=== PATIENT | female | born 1960 | race Caucasian/White ===

== ENCOUNTER → 2020-08-07 | Outpatient (CLI) | payer OTHER ==
[~2020-08-07] MED LIST: ASPI81TA45 PO; BLAC200C PO; CHOL10002 PO; FERR325T18 PO; LACT1CAP35 PO; LISI-170 PO; LISI1TAB23 PO; METO25TA35 PO; MULT-208 PO; MULT-257 PO; [UNRECOGNIZED DRUG - REMARK] PO
== END | disposition home or self-care (01) ==
LOC: RAD 11:26
PROVIDERS: ATTEND Surgery
DX: E21.0 Primary hyperparathyroidism (principal)
CPT/HCPCS: 78070; A9500

== ENCOUNTER 2020-10-09 17:13 | Observation (INO) | payer OTHER ==
[~2020-10-09] VITALS: Ht 190.5 cm; Wt 151.4 kg
[2020-10-09] MEDS ORDERED: ASPIRIN 81 MG TABLET CHEW ONE (17:53)
[2020-10-09] MEDS ORDERED: DILTIAZEM 5 MG/ML, 5ML ONE ×2 (17:54→19:28)
[2020-10-09] MEDS ORDERED: ASPIRIN 81 MG TABLET CHEW PO ONE (18:00)
[2020-10-09] MEDS ORDERED: DILTIAZEM 5 MG/ML, 5ML IVPush ONE ×2 (18:00→19:30)
[2020-10-09 18:09] LABS: BASOPHILS % (AUTO) 1 % (0-1); EOSINOPHILS % (AUTO) 0 % (1-7); LYMPHOCYTES % (AUTO) 21 % (22-44); MEAN CORPUSCULAR HEMOGLOBIN 29.6 pg (27.0-34.8); MEAN PLATELET VOLUME 7.7 fL (7.4-10.4); MONOCYTES % (AUTO) 8 % (2-9); NEUTROPHILS % (AUTO) 70 % (42-75); PLATELET COUNT 356 x10^3/uL (130-400); RED BLOOD COUNT 5.02 x10^6/uL (3.82-5.3)
[2020-10-09 18:11] LABS: MD NO
[2020-10-09 18:17] LABS: ALBUMIN 3.5 g/dL (3.4-5.0); ANION GAP 7 mmol/L (5-15); CALCIUM 10.6 mg/dL (8.5-10.1); CHLORIDE 99 mmol/L (98-107)
[2020-10-09 18:27] LABS: PROTHROMBIN TIME 10.7 Seconds (9.6-11.5)
[2020-10-09 18:30] LABS: CREATININE 0.88 mg/dL (0.55-1.02); FREE T4 (FREE THYROXINE) 1.25 ng/dL (0.76-1.46); TROPONIN I < 0.015 ng/mL (0.000-0.045)
--- NOTE | 2020-10-09 18:32 | NUR ---
PT IN BED WITH NO SIGNS OR SYMPTOMS OF ACUTE DSITRESS NOTED RESPIRAITONS EVEN AND UNLABORED DENIES NEED OR DISCOMFORT AT THIS TIME. 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 PT DENIES NEED OR DISCOMFORT AT THIS TIME. MD IN TO ASSESS, PT VERBALIZES UNDERSTANDING AND AGREEMENT WITH PLAN OF CARE.
--- NOTE | 2020-10-09 20:18 | NUR ---
BREAK RN: REPORT CALLED TO KRYSTLE DUVALL TO GO TO 528 WITH TAMMIE, ADMITING MD AT BS AT THIS TIME
[2020-10-09] MEDS ORDERED: GABAPENTIN 300 MG CAPSULE PO PRN (21:00)
[2020-10-09] MEDS ORDERED: ACETAMINOPHEN 325 MG TABLET PO PRN (21:00)
[2020-10-09] MEDS ORDERED: MELATONIN 5 MG TABLET PO PRN (21:00)
[2020-10-09] MEDS ORDERED: DILTIAZEM 5 MG/ML, 5ML IVPush PRN (21:00)
[2020-10-09] MEDS ORDERED: ONDANSETRON 2MG/ML, 2ML IVPush PRN (21:00)
[2020-10-09 21:24] VITALS: BP 145/88
[2020-10-09] MEDS ORDERED: LISI1TAB39 PO (21:42)
[2020-10-09] MEDS: APIXABAN 5 MG TABLET PO SCH (22:33)
[2020-10-09] MEDS: METOPROLOL TARTRATE 25 MG TAB PO SCH ×2 (22:33→23:38)
[2020-10-10 01:07] VITALS: BP 134/86
[2020-10-10 05:49] LABS: ANION GAP 7 mmol/L (5-15); CALCIUM 10.6 mg/dL (8.5-10.1); CHLORIDE 101 mmol/L (98-107); CHOLESTEROL, TOTAL 170 mg/dL (140-239); CREATININE 0.83 mg/dL (0.55-1.02); TRIGLYCERIDES 94 mg/dL (50-200); VLDL CHOLESTEROL 19 mg/dL (0-25)
[2020-10-10 05:51] LABS: HDL CHOLESTEROL (DIRECT) 72 mg/dL (40-60)
[2020-10-10 06:11] VITALS: BP 121/84
[2020-10-10] MEDS: METOPROLOL TARTRATE 25 MG TAB PO SCH (06:27)
[2020-10-10 06:31] LABS: CHOL/HDL RATIO 2.4; HDL CHOL % 42 % (28-40); LDL CHOLESTEROL,CALCULATED 79 mg/dL (54-169); LDL/HDL RATIO 1.1 (0.5-3.0)
[2020-10-10 07:58] VITALS: BP 104/66
[2020-10-10] MEDS ORDERED: ACETAMINOPHEN 325 MG TABLET PO PRN (08:30)
[2020-10-10] MEDS: APIXABAN 5 MG TABLET PO SCH (08:51)
[2020-10-10 08:59] VITALS: BP 107/68
[2020-10-10] MEDS ORDERED: MULTIVITAMIN 1 TABLET PO SCH (09:00)
[2020-10-10] MEDS ORDERED: LACTOBACILLUS CHEW TABLET PO SCH (09:00)
[2020-10-10] MEDS ORDERED: LISINOPRIL 20 MG TABLET PO SCH (09:00)
[2020-10-10] MEDS ORDERED: APIX5TAB PO (10:12)
[2020-10-10] MEDS ORDERED: METO-93 PO (10:12)
[2020-10-10] MEDS ORDERED: FERR325T18 PO (10:12)
[2020-10-10 12:10] VITALS: BP 109/74
[2020-10-10] MEDS ORDERED: METOPROLOL SUCCINATE 50 MG TAB.ER.24H PO SCH (21:00)
== END 2020-10-10 15:25 | disposition home or self-care (01) ==
LOC: ED 19:33 → EDIP 19:39 → INTOOBSV 19:39 → ED 20:07 → 5SO 20:59 → DCLOUNGE 10-10 15:07
PROVIDERS: ADMIT Family Medicine; ATTEND Internal Medicine
DX: I48.20 Chronic atrial fibrillation, unspecified (principal); I48.0 Paroxysmal atrial fibrillation; E21.0 Primary hyperparathyroidism; I10 Essential (primary) hypertension; E87.1 Hypo-osmolality and hyponatremia; G47.30 Sleep apnea, unspecified; E66.01 Morbid (severe) obesity due to excess calories; Z68.41 Body mass index [BMI] 40.0-44.9, adult; Z79.82 Long term (current) use of aspirin; Z79.899 Other long term (current) drug therapy
CPT/HCPCS: 36415; 71045; 80048; 80061; 82040; 82330; 83880; 83970; 84439; 84443; 84484; 85025; 85610; 85730; 93005; 93306; 96374; 96376; 99291; G0378

== ENCOUNTER → 2020-12-26 | Outpatient (CLI) | payer OTHER ==
[~2020-12-26] MED LIST changes: +APIX5TAB PO; +ASCO500T8 PO; +GLUC1CAP PO; +L.AC1CAP6 PO; +LISI1TAB39 PO; +METO-93 PO; +OMEP-110 PO; +VITA1TAB19 PO; +echinacea PO; +magnesium PO
[2020-12-26 12:35] LABS: ALBUMIN 3.5 g/dL (3.4-5.0); ANION GAP 8 mmol/L (5-15); CALCIUM 10.6 mg/dL (8.5-10.1); CHLORIDE 101 mmol/L (98-107)
[2020-12-26 12:38] LABS: ALANINE AMINOTRANSFERASE 33 U/L (12-78); ALKALINE PHOSPHATASE 95 U/L (45-117); BILIRUBIN,TOTAL 0.8 mg/dL (0.2-1.0); CREATININE 0.77 mg/dL (0.55-1.02); TOTAL PROTEIN 7.8 g/dL (6.4-8.2)
== END | disposition home or self-care (01) ==
LOC: STAR 10:51
PROVIDERS: ATTEND Surgery
DX: Z01.818 Encounter for other preprocedural examination (principal); I48.91 Unspecified atrial fibrillation; Z20.822 Contact with and (suspected) exposure to COVID-19
CPT/HCPCS: 36415; 80053; 93005; U0003; U0005

== ENCOUNTER 2021-01-01 06:28 | Day surgery (SDC) | payer OTHER ==
[~2021-01-01] VITALS: Ht 190.5 cm; Wt 153.3 kg
[2021-01-01] MEDS ORDERED: LACTATED RINGERS 1,000 ML IV SCH (07:00)
[2021-01-01] MEDS ORDERED: LABETALOL 5MG/ML, 20ML IVPush ONE (07:00)
[2021-01-01] MEDS ORDERED: CHLORHEXIDINE 15 ML UDC PO ONE (07:00)
[2021-01-01] MEDS ORDERED: CHLORHEXIDINE 15 ML UDC ONE (07:03)
[2021-01-01] MEDS ORDERED: LABETALOL 5MG/ML, 20ML ONE ×2 (07:19→08:09)
[2021-01-01 07:28] VITALS: BP 143/93
[2021-01-01] MEDS ORDERED: ACETAMINOPHEN 325 MG TABLET PO PRN (07:30)
[2021-01-01] MEDS ORDERED: MEPERIDINE/PF 25MG/0.5ML IVPush PRN (07:30)
[2021-01-01] MEDS ORDERED: morphine SULFATE 10 MG/ML, 1ML IVPush PRN (07:30)
[2021-01-01] MEDS ORDERED: LABETALOL 5MG/ML, 20ML IV PRN (07:30)
[2021-01-01] MEDS ORDERED: HALOPERIDOL 5 MG/ML IV PRN (07:30)
[2021-01-01] MEDS ORDERED: hydrALAzine 20 MG/ML, 1ML IV PRN (07:30)
[2021-01-01] MEDS ORDERED: METOPROLOL 1 MG/ML, 5ML IV PRN (07:30)
[2021-01-01] MEDS ORDERED: PROMETHAZINE 25 MG/ML, 1ML IVPush PRN (07:30)
[2021-01-01] MEDS ORDERED: HYDROmorphone 1 MG/ML, 1ML INJ IVPush PRN (07:30)
[2021-01-01] MEDS ORDERED: DEXAMETHASONE 4 MG/ML, 1ML ONE (07:33)
[2021-01-01] MEDS ORDERED: FENTANYL PF 250 MCG/5ML ONE ×2 (08:02→08:35)
[2021-01-01] MEDS ORDERED: MIDAZOLAM 1 MG/ML, 2ML ONE (08:02)
[2021-01-01] MEDS ORDERED: GLYCOPYRROLATE 0.2MG/1ML, 5ML ONE (08:05)
[2021-01-01] MEDS ORDERED: NEOSTIGMINE 1 MG/ML, 10ML ONE (08:05)
[2021-01-01] MEDS ORDERED: SUCCINYLCHOLINE 20 MG/ML, 10ML ONE (08:05)
[2021-01-01] MEDS ORDERED: ROCURONIUM 10MG/ML,5ML ONE (08:05)
[2021-01-01] MEDS ORDERED: CEFAZOLIN 1,000 MG ONE (08:05)
[2021-01-01] MEDS ORDERED: ONDANSETRON 2MG/ML, 2ML ONE (08:05)
[2021-01-01] MEDS ORDERED: PROPOFOL 10 MG/ML, 20ML ONE (08:05)
[2021-01-01] MEDS ORDERED: METOPROLOL 1 MG/ML, 5ML ONE (08:39)
[2021-01-01 09:00] LABS: IOPTH BASELINE 138 pg/mL
[2021-01-01 09:01] LABS: 10MIN %DROP IOPTH 75 %; 5MIN %DROP IOPTH 61 %; SAMPLE 5 %DROP IOPTH 84 %
[2021-01-01] MEDS ORDERED: OXYcodone 5 MG/5 ML ORAL.SOL UDC ONE (09:27)
[2021-01-01] MEDS ORDERED: FENTANYL PF 100 MCG/2ML ONE (09:27)
[2021-01-01] MEDS ORDERED: ACETAMINOPHEN 650 MG/20.3 ML UDC ONE (09:27)
[2021-01-01] MEDS: OXYcodone 5 MG/5 ML ORAL.SOL UDC PO PRN ×2 (09:31→11:25)
[2021-01-01] MEDS: FENTANYL PF 100 MCG/2ML IV PRN ×2 (09:34→09:48)
[2021-01-01] MEDS ORDERED: HYDR-2214 PO (09:46)
[2021-01-01] MEDS ORDERED: MEPERIDINE/PF 25MG/ML,1ML ONE (10:42)
== END 2021-01-01 12:25 | disposition home or self-care (01) ==
LOC: OUT 06:28
PROVIDERS: ATTEND Surgery
DX: E21.0 Primary hyperparathyroidism (principal); I10 Essential (primary) hypertension; I48.91 Unspecified atrial fibrillation; K21.9 Gastro-esophageal reflux disease without esophagitis; E66.01 Morbid (severe) obesity due to excess calories; Z68.41 Body mass index [BMI] 40.0-44.9, adult; Z90.710 Acquired absence of both cervix and uterus; Z98.890 Other specified postprocedural states; Z79.01 Long term (current) use of anticoagulants; Z79.899 Other long term (current) drug therapy; Z82.49 Family history of ischemic heart disease and other diseases of the circulatory system; Z83.3 Family history of diabetes mellitus
CPT/HCPCS: 36415; 60500; 83970; 88305; 88331; C1760; J0330; J0690; J2175; J2250; J2405; J2704; J2710; J3010; J7120; J1100